=== PATIENT | male | born 1950 | race Two or more races ===

== ENCOUNTER 2017-07-26 20:18 | Inpatient (IN) | payer MEDICARE, MEDICAID ==
[~2017-07-26] VITALS: Ht 170.2 cm; Wt 89.8 kg
[2017-07-26 20:35] VITALS: BP 134/83
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
[2017-07-26] MEDS ORDERED: MAG HYDROX/AL HYDROX/SIMETH 30 ML UDC PO PRN (21:30)
[2017-07-26] MEDS ORDERED: TEMAZEPAM 7.5 MG CAPSULE PO PRN (21:30)
[2017-07-26] MEDS ORDERED: MAGNESIUM HYDROXIDE 30 ML UDC PO PRN (21:30)
[2017-07-26] MEDS ORDERED: LORAZEPAM 1 MG TABLET PO PRN (21:30)
[2017-07-26] MEDS ORDERED: TEMAZEPAM 7.5 MG CAPSULE ONE (22:34)
--- NOTE | 2017-07-26 22:37 | NUR ---
GPS RN: PATIENT REQUESTED FOR SLEEPING MEDICATION. KRISH RODRIGUEZ-RN TOOK MEDICATION FROM [facility]. GIVEN PATIENT TO PATIENT ORDERED. WILL MONITOR PATIENT'S SLEEPING PATTERN.
[2017-07-26] MEDS ORDERED: SERT25TA PO (23:30)
[2017-07-26] MEDS ORDERED: IBUP-1482 PO (23:32)
[2017-07-26] MEDS ORDERED: DOCU-170 PO (23:33)
[2017-07-26] MEDS ORDERED: ALPR1TAB7 PO (23:41)
[2017-07-26] MEDS ORDERED: ESCI20TA PO (23:42)
[2017-07-26] MEDS ORDERED: AMLO10TA2 PO (23:42)
[2017-07-26] MEDS ORDERED: LABE200T PO (23:43)
[2017-07-26] MEDS ORDERED: GABA-534 PO (23:44)
[2017-07-26] MEDS ORDERED: BUSP5TAB3 PO (23:47)
[2017-07-26] MEDS ORDERED: LISI-603 PO (23:48)
[2017-07-26] MEDS ORDERED: CANA1TAB PO (23:49)
[2017-07-26] MEDS ORDERED: CHLO25CA22 PO (23:52)
[2017-07-26] MEDS ORDERED: CLIN-63 PO (23:53)
[2017-07-26] MEDS ORDERED: METO25TA6 PO (23:54)
[2017-07-27] MEDS ORDERED: LORAZEPAM 1 MG TABLET ONE (00:22)
--- NOTE | 2017-07-27 00:23 | NUR ---
GPS RN: PATIENT COMPLAINED OF BEING ANXIOUS THIS TIME. REQUESTED FOR ATIVAN MEDICATION. NATURAL RESOURCES TECHNICIANJANET TOOK ATIVAN 1MG AN OVERRIDE FROM [facility], LIQUOR DEPARTMENT MANAGER ADMINISTERED THE SAID MEDICATION TO PATIENT. WILL MONITOR EFFECTIVENESS OF THE MEDICATION. WILL ENDORSE TO DAY SHIFT NURSE.
[2017-07-27] MEDS ORDERED: *INSULIN REGULAR(HUMULIN R)HUM 100 UNIT/ML VIAL SQ PRN (01:30)
[2017-07-27] MEDS ORDERED: DEXTROSE 50%-WATER 50 ML DISP.SYRIN IV PRN (01:30)
[2017-07-27] MEDS ORDERED: INSULIN REGULAR, HUMAN 100 UNIT/ML 3 ML VIAL SQ PRN (01:30)
[2017-07-27] MEDS: ACETAMINOPHEN 325 MG TABLET PO PRN (04:17)
[2017-07-27] MEDS ORDERED: ACETAMINOPHEN 325 MG TABLET ONE (04:17)
--- NOTE | 2017-07-27 04:20 | NUR ---
GPS RN: PATIENT COMPLAINED OF MILD HEADCAHE, HE THEN REQUESTED FOR TYLENOL MEDICATION.CODING SPECIALISTJANET TOOK TYLENOL 650MG FROM [employer] [facility]. CONVEYOR LINE BAKERY WORKER ADMINISTERED IT TO PATIENT ORDERED. WILL MONITOR EFFECTIVENESS OF MEDICATION. WILL MONITOR PATIENT'S PAIN STATUS.
[2017-07-27 06:35] LABS: HEMATOCRIT 36 % (39-51); HEMOGLOBIN 11.8 g/dL (13.5-17.5); MEAN CORPUSCULAR HEMOGLOBIN 25 PG (26.0-33.0); MEAN CORPUSCULAR HGB CONC 33 g/dl (31.0-36.0); MEAN CORPUSCULAR VOLUME 75 fL (80-96); PLATELET COUNT (AUTO) 194 /CMM (150-450); RDW COEFFICIENT OF VARIATION 21.9 (11.5-15.0); WHITE BLOOD COUNT (AUTO) 8.5 K/uL (4.3-11.0)
--- NOTE | 2017-07-27 06:49 | NUR ---
GPS RN: CALLED CLAU DELVALLE [phone] WITH NO ANSWER. LEFT VOICEMAIL.
[2017-07-27] MEDS: BLOOD SUGAR DIAGNOSTIC 1 EACH STRIP VI SCH ×4 (07:30→21:06)
[2017-07-27 07:44] LABS: ALBUMIN 3.5 g/dL (3.4-5.0); BILIRUBIN,TOTAL 1.4 mg/dL (0.2-1.0); CALCIUM, SERUM 8.9 mg/dL (8.5-10.1); CREATININE 0.7 mg/dL (0.6-1.3); TOTAL PROTEIN, SERUM 7.3 g/dL (6.4-8.2)
[2017-07-27 08:17] VITALS: BP 141/78
[2017-07-27 08:28] LABS: BAND % (MANUAL) 2 % (0.0-5.0); EOSINOPHILS % (MANUAL) 5 % (0-4); LYMPHOCYTES % (MANUAL) 9 % (16-48); MONOCYTES % (MANUAL) 7 % (0-11.0); NEUTROPHILS % (MANUAL) 77 (42-76)
[2017-07-27] MEDS ORDERED: IBUPROFEN 400 MG TABLET PO PRN (08:30)
[2017-07-27] MEDS: GABAPENTIN 300 MG CAPSULE PO SCH ×2 (09:05→17:03)
[2017-07-27] MEDS: AMLODIPINE BESYLATE 10 MG TABLET PO SCH (09:05)
[2017-07-27] MEDS: METFORMIN 500 MG TABLET PO SCH ×2 (09:05→17:03)
[2017-07-27] MEDS: METOPROLOL TARTRATE 25 MG TABLET PO SCH ×2 (09:05→17:04)
[2017-07-27] MEDS: DOCUSATE SODIUM 100 MG CAPSULE PO SCH ×2 (09:05→17:03)
[2017-07-27] MEDS: LISINOPRIL (20MG) 20 MG TABLET PO SCH ×2 (09:58→17:04)
[2017-07-27] MEDS ORDERED: POTASSIUM CHLORIDE 20 MEQ TAB.PRT.SR PO ONE (12:00)
[2017-07-27 15:58] VITALS: BP 130/65
[2017-07-27] MEDS: ALPRAZOLAM 0.25 MG TABLET PO PRN ×3 (17:03→17:08)
[2017-07-27 20:23] VITALS: BP 117/90
[2017-07-27] MEDS: ALPRAZOLAM 1 MG TABLET PO SCH (21:05)
[2017-07-27] MEDS: TEMAZEPAM 7.5 MG CAPSULE PO PRN (22:20)
[2017-07-28] MEDS: BLOOD SUGAR DIAGNOSTIC 1 EACH STRIP VI SCH ×4 (07:30→21:45)
[2017-07-28 07:55] LABS: HEMATOCRIT 36 % (39-51); HEMOGLOBIN 11.6 g/dL (13.5-17.5); MEAN CORPUSCULAR HEMOGLOBIN 24 PG (26.0-33.0); MEAN CORPUSCULAR HGB CONC 32 g/dl (31.0-36.0); MEAN CORPUSCULAR VOLUME 76 fL (80-96); PLATELET COUNT (AUTO) 200 /CMM (150-450); RDW COEFFICIENT OF VARIATION 22.4 (11.5-15.0); RED BLOOD CELL COUNT(AUTO) 4.76 MIL/uL (4.5-6.0); WHITE BLOOD COUNT (AUTO) 6.5 K/uL (4.3-11.0)
[2017-07-28 07:57] LABS: CALCIUM, SERUM 9.2 mg/dL (8.5-10.1); CREATININE 0.9 mg/dL (0.6-1.3); MAGNESIUM 1.4 mg/dL (1.8-2.4); POTASSIUM 3.8 mmol/L (3.5-5.1)
[2017-07-28 08:14] VITALS: BP 131/57
[2017-07-28] MEDS ORDERED: SERTRALINE HCL 50 MG TABLET PO SCH (09:00)
[2017-07-28] MEDS: DOCUSATE SODIUM 100 MG CAPSULE PO SCH (09:03)
[2017-07-28] MEDS: GABAPENTIN 300 MG CAPSULE PO SCH ×2 (09:04→16:21)
[2017-07-28] MEDS: AMLODIPINE BESYLATE 10 MG TABLET PO SCH (09:05)
[2017-07-28] MEDS: METFORMIN 500 MG TABLET PO SCH ×2 (09:42→16:30)
[2017-07-28] MEDS: LISINOPRIL (20MG) 20 MG TABLET PO SCH ×2 (09:43→17:35)
[2017-07-28] MEDS: METOPROLOL TARTRATE 25 MG TABLET PO SCH ×2 (09:43→17:34)
--- NOTE | 2017-07-28 09:46 | NUR ---
Initial Discharge Note: Per patient, he lives at home with her daughter and [place]- [place] [address]. ([phone]). body and fender worker attempted to contact patient's ex- Luda Cobb ([phone]) however, she was unavailable. body and fender worker left a voicemail with direct contact information. body and fender worker will help form a safe and proper discharge.
[2017-07-28 10:02] LABS: BAND % (MANUAL) 4 % (0.0-5.0); EOSINOPHILS % (MANUAL) 4 % (0-4); LYMPHOCYTES % (MANUAL) 9 % (16-48); MONOCYTES % (MANUAL) 8 % (0-11.0); NEUTROPHILS % (MANUAL) 75 (42-76)
[2017-07-28] MEDS ORDERED: MAGNESIUM OXIDE 400 MG TABLET PO ONE (11:30)
--- NOTE | 2017-07-28 12:42 | NUR ---
reworker faxed initial review packet to [facility] [place] 2[place] and [facility] (phone: [phone]/fax: [phone]) [address] [place] [address]. reworker will follow-up.
[2017-07-28] MEDS ORDERED: LACTULOSE 10 G/15 ML UDC (PYXIS) PO PRN (13:00)
--- NOTE | 2017-07-28 15:11 | NUR ---
RN-CO: TONI ESTEVEZ THAT PATIENT WANTS TO CHANGE THE TIME OF HIS ROUTINE MEDICATIONS. TONI OK'D IT.
[2017-07-28] MEDS ORDERED: AMLODIPINE BESYLATE 5 MG TABLET PO ONE (15:33)
[2017-07-28 16:00] VITALS: BP_SYST 122; BP_SYST 153; BP_DIAS 73; BP_DIAS 74
[2017-07-28 20:01] VITALS: BP 122/65
[2017-07-28] MEDS: TEMAZEPAM 7.5 MG CAPSULE PO PRN (21:11)
[2017-07-28] MEDS: ALPRAZOLAM 1 MG TABLET PO SCH (21:13)
--- NOTE | 2017-07-28 21:45 | NUR ---
RN NOTES PT BS= 104 NO NEED TO GIVE INSULIN PER SLIDING SCALE. PT REMAINED CALM AND COMPLIANT WITH MEDICINE. NO S/S OF HYPO OR HYPERGLYCEMIA. WILL CONTINUE TO MONITOR.
[2017-07-29] MEDS: SERTRALINE HCL 50 MG TABLET PO SCH (07:16)
[2017-07-29] MEDS: GABAPENTIN 300 MG CAPSULE PO SCH ×2 (07:16→15:46)
[2017-07-29] MEDS: METFORMIN 500 MG TABLET PO SCH ×2 (07:16→15:45)
[2017-07-29] MEDS: DOCUSATE SODIUM 100 MG CAPSULE PO SCH (07:16)
[2017-07-29] MEDS: AMLODIPINE BESYLATE 10 MG TABLET PO SCH (07:18)
[2017-07-29] MEDS: METOPROLOL TARTRATE 25 MG TABLET PO SCH ×2 (07:18→15:46)
[2017-07-29] MEDS: LISINOPRIL (20MG) 20 MG TABLET PO SCH ×2 (07:18→15:46)
--- NOTE | 2017-07-29 08:00 | NUR ---
GPS/RN BS 109, NO COVERAGE NEEDED
[2017-07-29 08:53] VITALS: BP 141/83
[2017-07-29 09:11] LABS: CALCIUM, SERUM 9.8 mg/dL (8.5-10.1); MAGNESIUM 1.3 mg/dL (1.8-2.4); POTASSIUM 3.6 mmol/L (3.5-5.1)
[2017-07-29] MEDS: BLOOD SUGAR DIAGNOSTIC 1 EACH STRIP VI SCH ×4 (09:16→22:47)
--- NOTE | 2017-07-29 09:46 | NUR ---
piece dye worker received a voicemail from Ellen from [facility] (phone: [phone]/fax: [phone]) [address] [facility] [place] [address], who stated that they cannot accept the patient as they feel they are unable to meet his needs.
--- NOTE | 2017-07-29 09:48 | NUR ---
drug worker faxed initial review packet to [facility] (phone: [phone]/ fax: [phone]) [address] [place] [address]. drug worker will follow-up.
--- NOTE | 2017-07-29 10:41 | NUR ---
flat screen worker spoke to Angelica from [facility] (phone: [phone]/ fax: [phone]) [address] [place] [address] who stated that they cannot accept the patient due to his alcohol abuse and behavior.
--- NOTE | 2017-07-29 10:53 | NUR ---
cone worker faxed initial review packet to [address] [place] [address] ( / ) cone worker will follow-up.
--- NOTE | 2017-07-29 12:00 | NUR ---
GPS/RN BS 114, NO COVERAGE NEEDED
[2017-07-29] MEDS ORDERED: MAGNESIUM OXIDE 400 MG TABLET PO ONE (12:30)
[2017-07-29 16:26] VITALS: BP 141/95
--- NOTE | 2017-07-29 17:30 | NUR ---
GPS/RN BS 114, NO COVERAGE NEEDED
[2017-07-29] MEDS: ALPRAZOLAM 1 MG TABLET PO SCH (21:46)
[2017-07-29] MEDS: TEMAZEPAM 7.5 MG CAPSULE PO PRN (21:46)
[2017-07-30 08:00] VITALS: BP 133/74
[2017-07-30] MEDS: BLOOD SUGAR DIAGNOSTIC 1 EACH STRIP VI SCH ×4 (08:45→21:43)
[2017-07-30] MEDS: AMLODIPINE BESYLATE 10 MG TABLET PO SCH (08:50)
[2017-07-30] MEDS: DOCUSATE SODIUM 100 MG CAPSULE PO SCH (08:50)
[2017-07-30] MEDS: GABAPENTIN 300 MG CAPSULE PO SCH ×2 (08:50→15:46)
[2017-07-30] MEDS: SERTRALINE HCL 50 MG TABLET PO SCH (08:50)
[2017-07-30] MEDS: METFORMIN 500 MG TABLET PO SCH ×2 (08:50→15:46)
[2017-07-30] MEDS: METOPROLOL TARTRATE 25 MG TABLET PO SCH ×2 (08:51→15:47)
[2017-07-30] MEDS: LISINOPRIL (20MG) 20 MG TABLET PO SCH ×2 (08:51→15:47)
--- NOTE | 2017-07-30 09:43 | NUR ---
color drum worker spoke to Cj from [address] [place] [address] ( / ) who stated that they cannot accept the patient at this time.
--- NOTE | 2017-07-30 14:06 | NUR ---
GPS/RN ACCUCHECK WITH GF=[id number]. PT REFUSED INSULIN COVERAGE.
[2017-07-30 16:00] VITALS: BP 136/85
--- NOTE | 2017-07-30 17:30 | NUR ---
GPS/RN PT REFUSED ACCUCHECK OFFERED X3
[2017-07-30 20:00] VITALS: BP 135/73
[2017-07-30] MEDS: ALPRAZOLAM 0.25 MG TABLET PO PRN (21:41)
[2017-07-30] MEDS: TEMAZEPAM 7.5 MG CAPSULE PO PRN (21:41)
[2017-07-30] MEDS: ALPRAZOLAM 1 MG TABLET PO SCH (22:13)
[2017-07-31] MEDS: DOCUSATE SODIUM 100 MG CAPSULE PO SCH (07:31)
[2017-07-31] MEDS: METFORMIN 500 MG TABLET PO SCH ×2 (07:32→15:40)
[2017-07-31] MEDS: GABAPENTIN 300 MG CAPSULE PO SCH ×2 (07:32→15:39)
[2017-07-31] MEDS: METOPROLOL TARTRATE 25 MG TABLET PO SCH ×2 (07:32→15:40)
[2017-07-31] MEDS: SERTRALINE HCL 50 MG TABLET PO SCH (07:32)
[2017-07-31] MEDS: AMLODIPINE BESYLATE 10 MG TABLET PO SCH (07:32)
[2017-07-31] MEDS: BLOOD SUGAR DIAGNOSTIC 1 EACH STRIP VI SCH ×4 (07:33→22:09)
[2017-07-31] MEDS: LISINOPRIL (20MG) 20 MG TABLET PO SCH ×2 (07:33→15:40)
[2017-07-31 08:00] VITALS: BP 135/103
[2017-07-31 16:00] VITALS: BP 117/74
--- NOTE | 2017-07-31 18:30 | NUR ---
GPS RN: PATIENT'S BG LEVEL IS 136MG/DL. PATIENT REFUSED INSULIN SS COVERAGE.
[2017-07-31 20:00] VITALS: BP 126/75
[2017-07-31] MEDS: TEMAZEPAM 7.5 MG CAPSULE PO PRN (21:39)
[2017-07-31] MEDS: ALPRAZOLAM 0.25 MG TABLET PO PRN (21:39)
[2017-07-31] MEDS: ALPRAZOLAM 1 MG TABLET PO SCH (22:09)
[2017-08-01 08:00] VITALS: BP 144/98
[2017-08-01] MEDS: GABAPENTIN 300 MG CAPSULE PO SCH ×2 (08:38→16:34)
[2017-08-01] MEDS: SERTRALINE HCL 50 MG TABLET PO SCH (08:39)
[2017-08-01] MEDS: LISINOPRIL (20MG) 20 MG TABLET PO SCH ×2 (08:39→16:34)
[2017-08-01] MEDS: METOPROLOL TARTRATE 25 MG TABLET PO SCH ×2 (08:39→16:33)
[2017-08-01] MEDS: AMLODIPINE BESYLATE 10 MG TABLET PO SCH (08:39)
[2017-08-01] MEDS: DOCUSATE SODIUM 100 MG CAPSULE PO SCH (08:40)
[2017-08-01] MEDS: BLOOD SUGAR DIAGNOSTIC 1 EACH STRIP VI SCH ×4 (08:40→21:34)
[2017-08-01] MEDS: METFORMIN 500 MG TABLET PO SCH ×2 (08:41→16:33)
--- NOTE | 2017-08-01 10:00 | NUR ---
GPS/RN PT REQUESTED TO CHANGE THE TIME FOR AM MEDS FROM 0730 TO [phone]. MD IS IN AGREEMENT. PHARMACY CALLED FOR TIME ADJUSTMENT.
--- NOTE | 2017-08-01 12:45 | NUR ---
gps/rn pt refused accucheck at 1200. offered x3
[2017-08-01 16:00] VITALS: BP 127/62
[2017-08-01] MEDS: TEMAZEPAM 7.5 MG CAPSULE PO PRN (22:38)
[2017-08-01 22:53] VITALS: BP 123/67
[2017-08-01] MEDS: ALPRAZOLAM 1 MG TABLET PO SCH (23:39)
[2017-08-02 05:37] VITALS: BP 143/95
[2017-08-02] MEDS: ALPRAZOLAM 0.25 MG TABLET PO PRN ×2 (05:37→13:56)
--- NOTE | 2017-08-02 05:37 | NUR ---
GPS RN: PATIENT COMPLAINED OF BEING ANXIOUS, REQUESTED FOR XANAX MEDICATION. BP CHECKED PRIOR TO ADMINISTRATION BP 143/95 HR-117. XANAX 0.5 MG GIVEN A PRN ORDER. WILL CONTINUE TO MONITOR PATIENT.
[2017-08-02] MEDS: SERTRALINE HCL 50 MG TABLET PO SCH (06:36)
[2017-08-02] MEDS: METFORMIN 500 MG TABLET PO SCH ×2 (06:37→15:33)
[2017-08-02] MEDS: LISINOPRIL (20MG) 20 MG TABLET PO SCH ×2 (06:37→15:33)
[2017-08-02] MEDS: METOPROLOL TARTRATE 25 MG TABLET PO SCH ×2 (06:38→15:33)
[2017-08-02] MEDS: GABAPENTIN 300 MG CAPSULE PO SCH ×2 (06:38→15:33)
[2017-08-02] MEDS: DOCUSATE SODIUM 100 MG CAPSULE PO SCH (07:35)
[2017-08-02] MEDS: AMLODIPINE BESYLATE 10 MG TABLET PO SCH (07:35)
[2017-08-02] MEDS: BLOOD SUGAR DIAGNOSTIC 1 EACH STRIP VI SCH ×4 (07:35→21:24)
[2017-08-02 08:00] VITALS: BP 117/83
--- NOTE | 2017-08-02 14:01 | NUR ---
GPS RN: PATIENT REQUESTED FOR XANAX FOR ANXIETY XANAX 0.5 MG GIVEN A PRN ORDER. WILL CONTINUE TO MONITOR PATIENT.
--- NOTE | 2017-08-02 15:25 | NUR ---
Per Kelli, from [facility] [phone]) [address] [facility] [place] [address], patient could not be accepted to their facility due to his insurance coverage.
--- NOTE | 2017-08-02 15:44 | NUR ---
crime prevention worker spoke to patient's ex- Luda Cobb ([phone]) who stated that patient was at two nursing homes prior to him staying with her and her daughter. Per Luda, patient has a drinking problem and she had warned him that he would not be allowed to stay at home if he drank. Per Dariel, her and her daughter filed a restraining order. Luda suggested social insurance administrator speak to patient's step-daughter Estrellita ([phone]). crime prevention worker will follow-up.
[2017-08-02 16:18] VITALS: BP 150/76
--- NOTE | 2017-08-02 16:26 | NUR ---
munitions worker spoke to patient's daughter Estrellita ([phone]) who confirmed that patient was at [facility] in [place] and than was discharged to [facility] ([phone]/ [phone]) [address] [place] [address]. Per Estrellita, [facility] may have a bed available and encouraged hospice social worker to speak to Althea the senior sales administrator. munitions worker will follow-up.
[2017-08-02 20:00] VITALS: BP 131/80
[2017-08-02] MEDS: ALPRAZOLAM 1 MG TABLET PO SCH (21:24)
[2017-08-02] MEDS: TEMAZEPAM 7.5 MG CAPSULE PO PRN (22:29)
[2017-08-03] MEDS: GABAPENTIN 300 MG CAPSULE PO SCH ×2 (06:36→15:25)
[2017-08-03] MEDS: METFORMIN 500 MG TABLET PO SCH ×2 (06:36→15:25)
[2017-08-03] MEDS: LISINOPRIL (20MG) 20 MG TABLET PO SCH ×2 (06:36→15:25)
[2017-08-03] MEDS: METOPROLOL TARTRATE 25 MG TABLET PO SCH ×2 (06:37→15:25)
[2017-08-03] MEDS: SERTRALINE HCL 50 MG TABLET PO SCH (06:38)
[2017-08-03] MEDS: BLOOD SUGAR DIAGNOSTIC 1 EACH STRIP VI SCH ×4 (07:33→21:04)
[2017-08-03 08:00] VITALS: BP 117/76
[2017-08-03] MEDS: DOCUSATE SODIUM 100 MG CAPSULE PO SCH (08:48)
[2017-08-03] MEDS: AMLODIPINE BESYLATE 10 MG TABLET PO SCH (08:48)
--- NOTE | 2017-08-03 14:55 | NUR ---
Per Cj from [facility], they reevaluated and are willing to accept the patient to their facility, [address] [place] [address] ( / ). transportation worker will follow-up.
[2017-08-03] MEDS: ALPRAZOLAM 0.25 MG TABLET PO PRN (15:15)
[2017-08-03 15:35] VITALS: BP 128/84
[2017-08-03 19:55] VITALS: BP 136/76
[2017-08-03] MEDS: ALPRAZOLAM 1 MG TABLET PO SCH (21:03)
[2017-08-03] MEDS: TEMAZEPAM 7.5 MG CAPSULE PO PRN (22:30)
[2017-08-04] MEDS: ACETAMINOPHEN 325 MG TABLET PO PRN (05:53)
[2017-08-04] MEDS: ALPRAZOLAM 0.25 MG TABLET PO PRN (06:29)
--- NOTE | 2017-08-04 06:29 | NUR ---
GPS RN: PATIENT EXPRESSED HIS FEELINGS OF ANXIETY, BP CHECKED; 136/79 HR-91. HE REQUESTED HIS XANAX 0.5 MG PO FIRST OVER HIS 630AM MEDS. GIVEN XANAX MEDICATION PRN ORDERED. WILL MONITOR PATIENT.
[2017-08-04] MEDS: LISINOPRIL (20MG) 20 MG TABLET PO SCH (07:23)
[2017-08-04] MEDS: SERTRALINE HCL 50 MG TABLET PO SCH (07:23)
[2017-08-04] MEDS: METFORMIN 500 MG TABLET PO SCH (07:23)
[2017-08-04] MEDS: GABAPENTIN 300 MG CAPSULE PO SCH (07:24)
[2017-08-04] MEDS: METOPROLOL TARTRATE 25 MG TABLET PO SCH (07:24)
[2017-08-04] MEDS: BLOOD SUGAR DIAGNOSTIC 1 EACH STRIP VI SCH ×2 (07:30→11:41)
[2017-08-04] MEDS: AMLODIPINE BESYLATE 10 MG TABLET PO SCH (07:30)
[2017-08-04] MEDS: DOCUSATE SODIUM 100 MG CAPSULE PO SCH (07:30)
[2017-08-04 08:00] VITALS: BP 134/95
--- NOTE | 2017-08-04 09:00 | NUR ---
RN-CO: DR HERNANDEZ GAVE AN ORDER TO DISCHARGE PATIENT TO SNF AND DISCONTINUE HOLD AT 12:30 PM. NOTED PATIENT DENIED SUICIDAL AND HOMICIDAL IDEATION, CALM AND COOPERATIVE TO SANJAY, EX CLAU .
--- NOTE | 2017-08-04 10:58 | NUR ---
Discharge Note: Patient will be discharged to [facility] ([phone]) [address] [place] [address]. Via med response. Patients ex- Luda Cobb ([phone]) and patient's daughter Estrellita ([phone]) have been notified. Patient is agreeable with the discharge plan. Patient's mood is calm and patient is smiling and stated that he was glad he is being discharged to the facility. Patient denies suicidal and homicidal ideations. Patient will follow-up with psychiatrist Dr. Rivera ([phone]) on 08/11/17 at 2:00PM, in which he will discuss his alcohol abuse. Facilitated info to IDT team who are in agreement with discharge arrangement. The multidisciplinary exitcare form was done, printed, signed, and given to the patient.
[2017-08-04 13:54] LABS: CALCIUM, SERUM 8.8 mg/dL (8.5-10.1); MAGNESIUM 1.6 mg/dL (1.8-2.4); PHOSPHORUS 3.6 mg/dL (2.5-4.9); POTASSIUM 3.9 mmol/L (3.5-5.1)
--- NOTE | 2017-08-04 14:02 | NUR ---
PT DISCHARGED TO [facility]. REPORT GIVEN TO MERLIN AT [facility]. PT SIGNED BELONGINGS LIST AND DC PAPERWORK REFUSED SKIN PICTURES ON DC STATES HE DOES NOT WANT TO DISROBE, HE IS ALREADY DRESSED IN HIS OWN CLOTHES. PT'S MEDICATIONS IN A SEALED BACK GIVEN TO MEDICAL TRANSPORT. ALL BELONGINGS RETURNED TO THE PATIENT. EX- NOTIFIED BY CASE MGMT. PT LEFT THE UNIT AT 1350
== END 2017-08-04 14:00 | DRG 885 ==
LOC: GPS 20:34
PROVIDERS: ADMIT Psychiatry & Neurology Psychiatry; ATTEND Internal Medicine
DX: F33.2 Major depressive disorder, recurrent severe without psychotic features (principal); E83.42 Hypomagnesemia; E11.9 Type 2 diabetes mellitus without complications; F23 Brief psychotic disorder; D50.9 Iron deficiency anemia, unspecified; E87.6 Hypokalemia; F10.20 Alcohol dependence, uncomplicated; F41.9 Anxiety disorder, unspecified; I10 Essential (primary) hypertension; M19.90 Unspecified osteoarthritis, unspecified site; Z73.6 Limitation of activities due to disability; Z85.46 Personal history of malignant neoplasm of prostate
CPT/HCPCS: 36415; 80048-TC; 80053-TC; 80061-TC; 82962-TC; 83540-TC; 83735-TC; 84100-TC; 85025-TC; 87081-TC; J1815

== ENCOUNTER 2019-11-10 21:56 | Inpatient (IN) | payer MEDICARE, OTHER ==
[~2019-11-10] VITALS: Ht 177.8 cm; Wt 92.5 kg
[~2019-11-10 21:56] MED LIST: AMLO10TA7 PO; CANA1TAB PO; CLIN150C16 PO; DOCU100C36 PO; GABA-534 PO; IBUP-1957 PO; LABE200T5 PO; LISI-603 PO; METO25TA6 PO
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
[2019-11-10 23:09] LABS: BASOPHILS % (AUTO) 0.6 % (0.0-2.0); EOSINOPHILS % (AUTO) 2.1 % (0.0-6.0); HEMATOCRIT 33 % (39-51); HEMOGLOBIN 10.7 g/dL (13.5-17.5); LYMPHOCYTES # (AUTO) 0.6 /CMM (0.8-4.8); MEAN CORPUSCULAR HGB CONC 33 g/dl (31.0-36.0); MEAN CORPUSCULAR VOLUME 84 fL (80-96); MONOCYTES # (AUTO) 0.9 /CMM (0.1-1.30); MONOCYTES % (AUTO) 14.1 % (2.0-12.0); NEUTROPHILS # (AUTO) 4.5 /CMM (1.8-8.9); NEUTROPHILS % (AUTO) 73.2 % (43.0-81.0); PLATELET COUNT (AUTO) 184 /CMM (150-450); WHITE BLOOD COUNT (AUTO) 6.2 K/uL (4.3-11.0)
[2019-11-10 23:20] LABS: CARBON DIOXIDE 23 mmol/L (21-32); CHLORIDE 109 mmol/L (98-107); CREATININE 1.6 mg/dL (0.6-1.3); GLUCOSE 126 mg/dL (74-106); POTASSIUM 4.1 mmol/L (3.5-5.1); SODIUM SERUM 141 mmol/L (136-145); UREA NITROGEN, BLOOD 28 mg/dL (7-18)
[2019-11-10 23:26] LABS: ALANINE AMINOTRANSFERASE 22 U/L (12-78); ALBUMIN 3.6 g/dL (3.4-5.0); ALCOHOL, BLOOD < 3 mg/dL (0-0); ALKALINE PHOSPHATASE 69 U/L (46-116); ASPARTATE AMINOTRANSFERASE 19 U/L (15-37); BILIRUBIN,DIRECT 0.1 mg/dL (0.0-0.2); BILIRUBIN,TOTAL 0.2 mg/dL (0.2-1.0); TOTAL PROTEIN, SERUM 6.7 g/dL (6.4-8.2)
[2019-11-10 23:27] LABS: ACETAMINOPHEN 0 ug/ml (10-30); SALICYLATE 0.7 mg/dL (2.8-20.0)
--- NOTE | 2019-11-10 23:29 | NUR ---
PT REMAINS STABLE WITH NO DISTRESS NOTED. VS ARE STABLE WILL CONTINUE TO MONITOR
[2019-11-10] MEDS ORDERED: CHLORDIAZEPOXIDE HCL 25 MG CAPSULE PO PRN (23:30)
[2019-11-10] MEDS ORDERED: TEMAZEPAM 15 MG CAPSULE PO PRN (23:30)
[2019-11-11 00:21] LABS: APPEARANCE,URINE Clear (CLEAR); BILIRUBIN,URINE Negative (NEGATIVE); BLOOD, URINE Negative Ery/uL (NEGATIVE); COLOR,URINE Yellow (YELLOW); KETONES,URINE Negative (NEGATIVE); LEUKOCYTE ESTERASE ,URINE Negative (NEGATIVE); NITRITE, URINE Negative (NEGATIVE); PH,URINE 5.5 (5.0-8.0); PROTEIN,URINE Negative (NEGATIVE); UGLUCOSE Negative (NEGATIVE); UROBILINOGEN,URINE 0.2 EU/dL (0.2)
[2019-11-11] MEDS ORDERED: LORAZEPAM 1 MG TABLET ONE ×2 (01:41→06:00)
[2019-11-11] MEDS ORDERED: LORAZEPAM 1 MG TABLET PO ONE ×2 (02:00→06:00)
[2019-11-11] MEDS ORDERED: THIAMINE HCL 100 MG TABLET ONE (09:20)
[2019-11-11] MEDS: THIAMINE HCL 100 MG TABLET PO SCH (09:23)
--- NOTE | 2019-11-11 09:42 | NUR ---
PANEL ON-CALL PAGED FOR TELE ADMIT
--- NOTE | 2019-11-11 10:38 | NUR ---
received a call from Erna AVILES and lamine to admit patient for GPS under Dr. Samson.
--- NOTE | 2019-11-11 10:39 | NUR ---
CALLED FOR GPS BED
--- NOTE | 2019-11-11 10:53 | NUR ---
REPORT GIVEN TO VINAYAK DURAN FOR FAB
[2019-11-11 11:30] VITALS: BP 126/65
[2019-11-11] MEDS ORDERED: BLOOD SUGAR DIAGNOSTIC 1 EACH STRIP IN ONE (11:30)
[2019-11-11] MEDS ORDERED: MAGNESIUM HYDROXIDE 30 ML UDC PO PRN (11:30)
[2019-11-11] MEDS ORDERED: TEMAZEPAM 7.5 MG CAPSULE PO PRN (11:30)
--- NOTE | 2019-11-11 11:30 | NUR ---
GPS/RN -NOTES ADMITTED 69 YEAR OLD MALE PATIENT FROM [facility]. PER HOLD PATIENT ON 5150 FOR DTS.PATIENT AWAKE,ALERT AMBULATORY WITH STEADY GAIT, CALM AND COOPERATIVE.PATIENT DENIES SI/HI AT THIS TIME.STATED" I'M HERE BECAUSE I'M DEPRESSED BUT I'M NOT SUICIDAL". PATIENT SIGN ALL ADMISSION PAPERS. PATIENT'S RIGHT WAS REVIEWED WAS GIVEN TO HIM .CONTRA BAND AND FULL BODY ASSESSMENT WAS DONE. HE WAS ORIENTED IN THE UNIT AND UNIT POLICIES. ETELVINA AND DTR NGUYEN WAS MADE AWARE OF THE ADMISSION. DR. MAYES ADMITTING PSYCHIATRIST AND ANNETTE PAIGE STRE[address] AND BUILDING DECORATOR WAS MADE AWARE OF PATIENT ADMISSION WITH ORDERS.
[2019-11-11] MEDS ORDERED: TRAZ300T2 PO (11:55)
[2019-11-11] MEDS ORDERED: SPIR25TA6 PO (11:55)
[2019-11-11] MEDS ORDERED: LOSA50TA39 PO (11:55)
[2019-11-11] MEDS ORDERED: ATOR40TA PO (11:55)
[2019-11-11] MEDS ORDERED: AMIO200T4 PO (11:55)
[2019-11-11] MEDS ORDERED: HYDR-4384 PO (11:55)
[2019-11-11] MEDS ORDERED: APIX5TAB PO (11:55)
[2019-11-11] MEDS ORDERED: ACID1TAB14 PO (11:55)
[2019-11-11] MEDS ORDERED: FAMO20TA8 PO (11:55)
[2019-11-11] MEDS ORDERED: POLY17PO4 PO (11:55)
[2019-11-11] MEDS ORDERED: LEVO25TA7 PO (11:55)
--- NOTE | 2019-11-11 13:45 | NUR ---
Dr. Samson made aware of the admission and with orders
--- NOTE | 2019-11-11 15:28 | NUR ---
GPS/RN-NOTES PATIENT C/O CONSTIPATION FOR 2 DAYS AND REQUESTING FOR PRUNE JUICE MEDICATIONS. PRUNE JUICE GIVEN MOM 30 ML GIVEN PRN ORDER. WILL CONT. MONITORING
[2019-11-11 16:00] VITALS: BP 133/69
[2019-11-11 20:00] VITALS: BP 122/69
[2019-11-11] MEDS ORDERED: TRAZODONE 50 MG TABLET PO PRN (20:00)
[2019-11-11] MEDS: APIXABAN 5 MG TABLET PO SCH (20:33)
[2019-11-11] MEDS: TEMAZEPAM 7.5 MG CAPSULE PO PRN (23:05)
[2019-11-12] MEDS: LEVOTHYROXINE SODIUM 50 MCG TABLET PO SCH (07:44)
[2019-11-12 08:00] VITALS: BP 134/75
[2019-11-12 08:23] LABS: CHOLESTEROL 108 mg/dL (<200); HDL CHOLESTEROL 43 mg/dL (40-60); LDL 56 mg/dL (0-99); TRIGLYCERIDES 44 mg/dL (30-150)
[2019-11-12] MEDS: FAMOTIDINE (20 MG) 20 MG TABLET PO SCH ×2 (08:24→17:42)
[2019-11-12] MEDS: ACIDOPHILUS/BULGARICUS 1 EACH TAB.CHEW PO SCH (08:24)
[2019-11-12] MEDS: ATORVASTATIN 40 MG TABLET PO SCH (08:24)
[2019-11-12] MEDS: APIXABAN 5 MG TABLET PO SCH ×2 (08:26→17:46)
[2019-11-12] MEDS: LOSARTAN POTASSIUM 50 MG TABLET PO SCH ×2 (08:27→17:44)
[2019-11-12] MEDS: POLYETHYLENE GLYCOL 3350 17 GM POWD.PACK PO SCH (08:28)
[2019-11-12] MEDS: THIAMINE HCL 100 MG TABLET PO SCH (08:28)
[2019-11-12] MEDS: AMIODARONE HCL 200 MG TABLET PO SCH (08:28)
[2019-11-12] MEDS: SPIRONOLACTONE 25 MG TABLET PO SCH (08:30)
[2019-11-12 08:37] LABS: ALBUMIN 3.4 g/dL (3.4-5.0); BILIRUBIN,TOTAL 0.5 mg/dL (0.2-1.0); CALCIUM, SERUM 8.5 mg/dL (8.5-10.1); CREATININE 1.2 mg/dL (0.6-1.3); POTASSIUM 3.7 mmol/L (3.5-5.1); TOTAL PROTEIN, SERUM 6.5 g/dL (6.4-8.2)
[2019-11-12] MEDS: ACETAMINOPHEN 325 MG TABLET PO PRN (15:03)
--- NOTE | 2019-11-12 15:03 | NUR ---
RN NOTE- PT W GENERALIZED PAIN. TYLENOL 650 MG GIVEN
[2019-11-12 16:00] VITALS: BP 119/66
[2019-11-12 20:28] VITALS: BP_SYST 125; BP_SYST 145; BP_DIAS 69; BP_DIAS 70
[2019-11-12] MEDS: TEMAZEPAM 7.5 MG CAPSULE PO PRN (23:33)
[2019-11-13] MEDS: clonazePAM 0.5 MG TABLET PO PRN ×3 (05:53→22:16)
[2019-11-13] MEDS: ACETAMINOPHEN 325 MG TABLET PO PRN ×2 (05:57→21:35)
--- NOTE | 2019-11-13 06:16 | NUR ---
AT 0550 PT COMPLAINED OF ANXIETY AND CHEST PAIN. V/S TAKEN BP127/59, P77, O2 96% R16. KLONOPIN 0.5MG I TAB AND TYLENOL 325MG 2TABS GIVEN PO. [facility] CALLED AND ORDER GIVEN BY MAX TODD FOR TACK WELDER CONSULT, AND MORPHINE SULPHATE 4MG Q 4HRS PRN FOR SEVERE PAIN. WILL CONTINUE TO MONITOR AND ENDORSE TO AM SHIFT.
--- NOTE | 2019-11-13 06:51 | NUR ---
AT 0650 PT REFUSED IV MORPHINE SULPHATE 4MG PRN, D/O DECREASED PAIN
[2019-11-13] MEDS ORDERED: MORPHINE SULFATE INJ 4 MG/ML DISP.SYRIN IV PRN (07:00)
[2019-11-13] MEDS: LEVOTHYROXINE SODIUM 50 MCG TABLET PO SCH (07:13)
--- NOTE | 2019-11-13 07:35 | NUR ---
refused skin check due to chest pain
[2019-11-13 08:00] VITALS: BP 131/81
[2019-11-13] MEDS: SPIRONOLACTONE 25 MG TABLET PO SCH (08:12)
[2019-11-13] MEDS: POLYETHYLENE GLYCOL 3350 17 GM POWD.PACK PO SCH ×2 (08:12→08:19)
[2019-11-13] MEDS: ACIDOPHILUS/BULGARICUS 1 EACH TAB.CHEW PO SCH (08:12)
[2019-11-13] MEDS: FAMOTIDINE (20 MG) 20 MG TABLET PO SCH ×2 (08:12→17:22)
[2019-11-13] MEDS: ATORVASTATIN 40 MG TABLET PO SCH (08:12)
[2019-11-13] MEDS: LOSARTAN POTASSIUM 50 MG TABLET PO SCH ×2 (08:12→17:22)
[2019-11-13] MEDS: AMIODARONE HCL 200 MG TABLET PO SCH (08:13)
[2019-11-13] MEDS: APIXABAN 5 MG TABLET PO SCH ×2 (08:14→17:23)
[2019-11-13] MEDS: THIAMINE HCL 100 MG TABLET PO SCH (08:16)
[2019-11-13] MEDS: SERTRALINE HCL 50 MG TABLET PO SCH (08:16)
--- NOTE | 2019-11-13 08:51 | NUR ---
RN NOTE- PT W CHEST PAIN PREVIOUSLY. MORPHINE ORDERED. PT REFUSED RX. I PHONED AUTOMOTIVE VEHICLE INSPECTOR PEREZ AND GOT NITRO 0.4 MG SL ORDERED FOR CHEST PAIN. PT CURRENTLY DENIES CHEST PAIN. MONITORING PT.
--- NOTE | 2019-11-13 08:56 | NUR ---
ROGER NOTE- SPOKE W DR YANG REGARDING CARDIAC CONSULT ORDERED. HES AWARE. Addendum: 11/13/19 at 0911 by MOHAN ROBERT RN DR YANG ON UNITRyan CARRILLO PT
--- NOTE | 2019-11-13 09:23 | NUR ---
Family Contact: SW called the pts ex , Luda ([phone]), and received a busy dial tone number.
--- NOTE | 2019-11-13 09:25 | NUR ---
Family Contact: SW called the pts daughter, Ana Maria ([phone]), and left a message on her voicemail stating that the SW would like to discuss the pts initial treatment and discharge plan.
--- NOTE | 2019-11-13 09:45 | NUR ---
RN NOTE- CT ORDERED, EKG . CONSENTS PREPARED AND PT READIED. IV 18G TO RT AC STARTED. AWAITING RADIOLOGY
[2019-11-13] MEDS: CARVEDILOL 6.25 MG TABLET PO SCH ×2 (10:46→21:27)
--- NOTE | 2019-11-13 10:54 | NUR ---
Initial Discharge Plan: Pt is currently homeless. Pt stated that he would like to be discharged to a snf facility. BARRY called the pts ex , Luda ([phone]), but was unable to make contact at this time. BARRY will work with the pt and the MD regarding appropriate discharge planning. SW will form a safe and proper discharge.
--- NOTE | 2019-11-13 10:56 | NUR ---
GPS/RN-NOTES DR. MAYES AND (COVERING FOR DR. MAYES) MADE AWARE OF THE CTA OF THE HEART BY DR. AUSTIN WITH T.O ORDER TO CONTINUE HOLD. ANNETTE PAIGE ALSO MADE AWARE OF CTA WITH NNO.
[2019-11-13] MEDS ORDERED: IV NS 0.9% 0 ML IV ONE (11:42)
[2019-11-13] MEDS ORDERED: IOHEXOL-350 100 ML VIAL IV ONE ×2 (11:42→15:34)
[2019-11-13] MEDS ORDERED: NITROGLYCERIN 0.4 MG/TAB BOTTLE ONE (11:56)
[2019-11-13] MEDS ORDERED: METOPROLOL TARTRATE INJ 5 MG/5 ML AMPUL ONE (11:56)
[2019-11-13] MEDS ORDERED: NITROGLYCERIN 0.4 MG/TAB BOTTLE SL ONE ×2 (12:00→16:00)
[2019-11-13] MEDS ORDERED: IV NS 0.9% 500 ML IV PRN (12:00)
[2019-11-13] MEDS ORDERED: METOPROLOL TARTRATE INJ 5 MG/5 ML AMPUL IVP PRN (12:00)
--- NOTE | 2019-11-13 12:27 | NUR ---
Unable to perform the CTA heart; pt came in with peripheral IV line g 18 on R ac but not flushing well, unable to place another P IV line; Nursing Passport Support Associate Lesley connelly; pt sent back to GPS with his sitter Jordon
[2019-11-13] MEDS ORDERED: IV NS 0.9% 250 ML IV ONE (15:34)
[2019-11-13] MEDS ORDERED: CT SWABBABLE VALVE TRANS SET 1 EA INFUS.SET MC ONE (15:34)
[2019-11-13 16:00] VITALS: BP 138/77
--- NOTE | 2019-11-13 16:43 | NUR ---
RN NOTE- PT AGITATED. YELLING T STAFF. IRRITABLE BECAUSE OF EXTENSION OF HOLD AND PROCEDURES TODAY. KLONOPIN 0.5 MG GIVEN
[2019-11-13 20:10] VITALS: BP 146/72
--- NOTE | 2019-11-13 21:37 | NUR ---
PRN TYLENOL GIVEN PATIENT VERBALIZED THAT HE HAS HEADACHE 3/10 & WANTED TO TAKE TYLENOL. PRN TYLENOL 650 MG PO GIVEN ORDERED. WILL CONTINUE TO MONITOR THE PATIENT FOR ANY CHANGES.
--- NOTE | 2019-11-13 22:20 | NUR ---
PRN KLONOPIN GIVEN PATIENT REQUESTED TO TAKE ANXIETY MEDICINE. STATED THAT HE IS FEELING ANXIOUS & RESTLESS. PRN KLONOPIN 0.5 MG GIVEN ORDERED. WILL CONTINUE TO MONITOR.
[2019-11-13] MEDS: TEMAZEPAM 7.5 MG CAPSULE PO PRN (23:31)
--- NOTE | 2019-11-13 23:33 | NUR ---
PRN RESTORIL GIVEN PATIENT STATED HE IS UNABLE TO SLEEP & WANTS TO TAKE SLEEPING MEDICINE AT THIS TIME, SO HE CAN GO TO SLEEP. RESTORIL 7.5 MG PRN PO GIVEN ORDERED. WILL MONITOR CLOSELY FOR ANY CHANGES & SAFETY.
[2019-11-14] MEDS: NITROGLYCERIN 0.4 MG/TAB BOTTLE SL PRN ×2 (04:59→17:26)
--- NOTE | 2019-11-14 04:59 | NUR ---
PRN NITROSTAT GIVEN patient had c/o chest pain, prn nitrostat 0.4 mg 1 tab SL given. vital signs checked, BP 157/86, 62, 18, 97.2 F, 96% on RA. will continue to assess the patient very closely for any changes.
--- NOTE | 2019-11-14 05:06 | NUR ---
GPS RN NOTE RECHECKED THE PATIENT, REFUSED VITALS TO BE CHECKED AT THIS TIME. STATED HE IS TRYING TO SLEEP & DOES NOT WANT TO BE BOTHERED AT THIS TIME. PATIENT STATED HE STILL HAS MILD CHEST PAIN BUT WANTS TO SLEEP NOW & DOES NOT WANT TO TAKE ANY MEDICINE AT THIS TIME. NO OTHER SYMPTOMS OF ACUTE DISTRESS NOTED AT THIS TIME. WILL KEEP ASSESSING THE PATIENT FOR ANY CHANGE OF CONDITION.
[2019-11-14 05:50] VITALS: BP 143/79
[2019-11-14] MEDS: LEVOTHYROXINE SODIUM 50 MCG TABLET PO SCH (07:47)
[2019-11-14] MEDS: clonazePAM 0.5 MG TABLET PO PRN ×2 (07:48→22:23)
--- NOTE | 2019-11-14 07:49 | NUR ---
RN NOTE- PT RESTING IN BED. DENIES CHEST PAIN. B/P 133/72, HR-67. PT W SOME ANXIETY HOWEVER. STATES HE GETS WORRIED ABOUT DC AND WHAT'S GOING TO HAPPEN TO HIM. KLONOPIN 0.5 MG GIVEN. CONTINUE TO MONITOR PT
[2019-11-14 08:00] VITALS: BP 133/72
[2019-11-14] MEDS: FAMOTIDINE (20 MG) 20 MG TABLET PO SCH ×2 (08:01→17:40)
[2019-11-14] MEDS: SPIRONOLACTONE 25 MG TABLET PO SCH (08:01)
[2019-11-14] MEDS: ATORVASTATIN 40 MG TABLET PO SCH (08:01)
[2019-11-14] MEDS: SERTRALINE HCL 50 MG TABLET PO SCH (08:01)
[2019-11-14] MEDS: ACIDOPHILUS/BULGARICUS 1 EACH TAB.CHEW PO SCH (08:02)
[2019-11-14] MEDS: AMIODARONE HCL 200 MG TABLET PO SCH (08:02)
[2019-11-14] MEDS: APIXABAN 5 MG TABLET PO SCH ×2 (08:05→17:41)
[2019-11-14] MEDS: LOSARTAN POTASSIUM 50 MG TABLET PO SCH ×2 (08:06→17:41)
[2019-11-14] MEDS: CARVEDILOL 6.25 MG TABLET PO SCH ×2 (08:06→21:50)
[2019-11-14] MEDS: POLYETHYLENE GLYCOL 3350 17 GM POWD.PACK PO SCH (08:06)
[2019-11-14] MEDS: THIAMINE HCL 100 MG TABLET PO SCH (08:10)
[2019-11-14] MEDS ORDERED: SOD FERRIC GLUC 125 MG in IV NS 0.9% 100 ML IV SCH (14:00)
--- NOTE | 2019-11-14 14:29 | NUR ---
RN-CO: Called Dr Ma. Macdonald regarding consult order of Dr Samson. Left message.
[2019-11-14] MEDS: FERROUS SULFATE (325 MG) 325 MG/TAB TABLET PO SCH ×2 (14:54→17:41)
[2019-11-14 15:11] LABS: IRON, SERUM 82 ug/dl (50-175); TOTAL IRON BINDING CAPACITY 287 ug/dl (250-450)
--- NOTE | 2019-11-14 15:14 | NUR ---
RN NOTE- DR FIELD CAME TO SEE PT AT THIS RN REQUEST. PT HAD AN ORDER FOR IV IRON FERRLECIT 125 MG IV ONCE DAILY X 5 DAYS. THERE WASN'T ANY IRON LEVELS (IRON STUDIES) IN THE LABS. DR FIELD ORDERED LABS REVIEWED CHART AND ORDERED IRON PO FOR PT. MID LINE DC'D BY PICC LINE RN THROUGH HOUSE SUP. TOLERATED WELL. MONITORING IV SITE.
--- NOTE | 2019-11-14 15:45 | NUR ---
RN NOTE- MID LINE SITE CHECKED. NO DRAINAGE/ NO BLEEDING / NO PROBLEMS. DRESSING INTACT
[2019-11-14 16:00] VITALS: BP 131/79
--- NOTE | 2019-11-14 17:26 | NUR ---
RN NOTE- PT W C/O CHEST PAIN. NITRO TAT GIVEN SL. APICAL HR -72 B/P- 125/70. CONTINUE TO MONITOR PT AND FOLLOW UP PRN
--- NOTE | 2019-11-14 17:45 | NUR ---
RN NOTE- PT STATES DECREASED CHEST PAIN. "I FEEL BETTER" . WILL CONTINUE TO MONITOR
--- NOTE | 2019-11-14 18:32 | NUR ---
RN NOTE- RECHECK OF PT CHEST PAIN. PT WITH STATED DECREASE IN CHEST PAIN. "ITS NOT COMPLETELY GONE, BUT MUCH BETTER." cONTINUE TO MONITOR AND TREAT PER MD ORDERS
[2019-11-14 19:38] VITALS: BP 121/64
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
[2019-11-14] MEDS: ACETAMINOPHEN 325 MG TABLET PO PRN (23:04)
[2019-11-14] MEDS: TEMAZEPAM 7.5 MG CAPSULE PO PRN (23:39)
[2019-11-15] MEDS: clonazePAM 0.5 MG TABLET PO PRN ×3 (05:05→21:26)
[2019-11-15 08:00] VITALS: BP 141/71
[2019-11-15] MEDS: FAMOTIDINE (20 MG) 20 MG TABLET PO SCH ×2 (08:09→16:59)
[2019-11-15] MEDS: ACIDOPHILUS/BULGARICUS 1 EACH TAB.CHEW PO SCH (08:09)
[2019-11-15] MEDS: THIAMINE HCL 100 MG TABLET PO SCH (08:09)
[2019-11-15] MEDS: FERROUS SULFATE (325 MG) 325 MG/TAB TABLET PO SCH ×2 (08:09→16:59)
[2019-11-15] MEDS: SPIRONOLACTONE 25 MG TABLET PO SCH (08:09)
[2019-11-15] MEDS: LEVOTHYROXINE SODIUM 50 MCG TABLET PO SCH (08:09)
[2019-11-15] MEDS: POLYETHYLENE GLYCOL 3350 17 GM POWD.PACK PO SCH (08:10)
[2019-11-15] MEDS: ATORVASTATIN 40 MG TABLET PO SCH (08:10)
[2019-11-15] MEDS: AMIODARONE HCL 200 MG TABLET PO SCH (08:11)
[2019-11-15] MEDS: CARVEDILOL 6.25 MG TABLET PO SCH ×2 (08:12→21:27)
[2019-11-15] MEDS: LOSARTAN POTASSIUM 50 MG TABLET PO SCH ×2 (08:12→16:59)
[2019-11-15] MEDS: APIXABAN 5 MG TABLET PO SCH ×2 (08:19→17:04)
[2019-11-15] MEDS ORDERED: SERTRALINE HCL 50 MG TABLET PO SCH (09:00)
--- NOTE | 2019-11-15 10:10 | NUR ---
PT C/O CHEST PAIN. ELIZABETH ORDERED EKG AND TROPONIN LEVEL. ELIZABETH BURN CENTER NURSE MADE AWARE OF EKG RESULTS. AWAITING TROPONIN LEVEL
[2019-11-15] MEDS: ARIPIPRAZOLE 5 MG TABLET PO SCH (11:06)
[2019-11-15] MEDS: ACETAMINOPHEN 325 MG TABLET PO PRN (11:43)
--- NOTE | 2019-11-15 15:26 | NUR ---
Group Note: SW encouraged the pt to attend group therapy on 11/15/19 at 2pm regarding suicidal ideation and urges. Pt refused to attend the group and appeared to be in an irritated mood. Pt stated that he wanted to remain in his bed because he was feeling upset at the time. Pt refused to speak to the SW any further.
[2019-11-15 16:00] VITALS: BP 108/68
[2019-11-15 20:00] VITALS: BP 126/71
[2019-11-15] MEDS: TEMAZEPAM 7.5 MG CAPSULE PO PRN (22:21)
[2019-11-16] MEDS: NITROGLYCERIN 0.4 MG/TAB BOTTLE SL PRN ×2 (02:17→15:58)
[2019-11-16] MEDS: ACETAMINOPHEN 325 MG TABLET PO PRN (02:22)
--- NOTE | 2019-11-16 02:53 | NUR ---
AT 021 PT COMPLAINED OF CHEST PAIN AND GENERAL BODY PAIN. NITROGLYCERIN 0.4MG 1 TAB GIVEN SUBLINGUAL PER ORDER. TYLENOL 325MG 2 TABS 650 GIVEN PO FOR GENERAL PAIN. REASSESSED PT CHEST PAIN AT 222, PT REPORTS CHEST PAIN HAS REDUCED AND THAT HE FEELS BETTER. PT WAS VISIBLY UPSET STATING, " I HAVE NO MONEY AND NO WHERE TO GO AND NO BODY CARES, I [place] BUT NOW I CAN'T EVEN GET MYSELF TREATED OF CLOGGED ARTERY BECAUSE I DO NOT HAVE INSURANCE. WHEN THEY DRAFTED ME TO [place]E [place] THEY NEVER ASKED OF INSURANCE". PT REPORTS HE HAS NO FAMILY, HIS EX IS IN [facility], AND HIS ADOPTED DAUGHTER HAS REFUSED TO SEE HIM. PT WAS VERY UPSET BUT LATER CALM DOWN AND WENT TO BED. WILL CONTINUE TO MONITOR FOR PAIN, MOOD AND BEHAVIOR.
[2019-11-16] MEDS: LEVOTHYROXINE SODIUM 50 MCG TABLET PO SCH (06:33)
--- NOTE | 2019-11-16 06:56 | NUR ---
RN NOTES: AT 0650 PT REPORTED PRIOR TO HIS ADMISSION HE'S BEEN ON LUPRON SHOTS AND RADIATION FOR HIS PROSTATE CANCER, AND WOULD LIKE TO BE PUT BACK ON THEM.
[2019-11-16] MEDS ORDERED: LEUP3.753 IM (07:03)
[2019-11-16 08:00] VITALS: BP 121/74
[2019-11-16] MEDS: FAMOTIDINE (20 MG) 20 MG TABLET PO SCH ×2 (08:27→17:01)
[2019-11-16] MEDS: ACIDOPHILUS/BULGARICUS 1 EACH TAB.CHEW PO SCH (08:29)
[2019-11-16] MEDS: THIAMINE HCL 100 MG TABLET PO SCH (08:29)
[2019-11-16] MEDS: ATORVASTATIN 40 MG TABLET PO SCH (08:29)
[2019-11-16] MEDS: SPIRONOLACTONE 25 MG TABLET PO SCH (08:29)
[2019-11-16] MEDS: SERTRALINE HCL 50 MG TABLET PO SCH (08:30)
[2019-11-16] MEDS: clonazePAM 0.5 MG TABLET PO PRN (08:31)
[2019-11-16] MEDS: ARIPIPRAZOLE 5 MG TABLET PO SCH (08:32)
[2019-11-16] MEDS: FERROUS SULFATE (325 MG) 325 MG/TAB TABLET PO SCH ×2 (08:32→17:02)
[2019-11-16] MEDS: CARVEDILOL 6.25 MG TABLET PO SCH ×2 (08:33→21:48)
[2019-11-16] MEDS: LOSARTAN POTASSIUM 50 MG TABLET PO SCH ×2 (08:34→17:01)
[2019-11-16] MEDS: POLYETHYLENE GLYCOL 3350 17 GM POWD.PACK PO SCH (08:35)
[2019-11-16] MEDS: APIXABAN 5 MG TABLET PO SCH ×2 (08:36→17:01)
[2019-11-16] MEDS: AMIODARONE HCL 200 MG TABLET PO SCH (08:38)
--- NOTE | 2019-11-16 08:58 | NUR ---
SNF Referral: BARRY faxed a referral to [facility] with attn to Rochelle to the fax number: [phone].
--- NOTE | 2019-11-16 15:37 | NUR ---
GROUP NOTE: SW encouraged pt to attend group on this present day discussing "discharge planning." S: "I'm dying and I don't care where I go. This place does not have a plan for me." O: Pt with irritable affect and angry mood. Pt maintained eye contact and was not allowing for redirection. A: Pt has not gained insight into his mental illness. Pt blaming others for his misfortune and questioning why no one has helped him. P: SW will continue to validate pts experience of distress as understandable given his situation.
--- NOTE | 2019-11-16 15:47 | NUR ---
Individual Intervention: SW met with the pt at bedside and informed him that the pt may be accepted to [facility] but they are considering the pts placement because they do not know which SNF the pt was previously at. SW informed him that she would try to place him.
[2019-11-16 16:00] VITALS: BP 125/73
--- NOTE | 2019-11-16 16:01 | NUR ---
Pt. is complaining of chest pain. BP 125/73, DC 64. Stephanie Laughlin (AIR BAG STRIPPER) made aware and ordered to give the prn Nitrostat and stat EKG.
--- NOTE | 2019-11-16 16:24 | NUR ---
Stephanie Laughlin made aware of the EKG result and no new order and said ok to give the 5:00 pm meds of Cozaar, Eliquis, Ferrous and Pepcid.
[2019-11-16 17:00] VITALS: BP 121/63
--- NOTE | 2019-11-16 17:05 | NUR ---
Pt.said chest is getting better and no sign of distress and compliant on due meds.
[2019-11-16 20:00] VITALS: BP 140/77
[2019-11-16] MEDS: VITAMINS A AND D 56.7 GM TUBE TP PRN (20:02)
[2019-11-16] MEDS: TEMAZEPAM 7.5 MG CAPSULE PO PRN (21:49)
[2019-11-17] MEDS: clonazePAM 0.5 MG TABLET PO PRN ×2 (02:27→10:12)
[2019-11-17] MEDS: MAG HYDROX/AL HYDROX/SIMETH 30 ML UDC PO PRN (03:41)
[2019-11-17] MEDS: LEVOTHYROXINE SODIUM 50 MCG TABLET PO SCH (06:48)
[2019-11-17 08:00] VITALS: BP 130/66
[2019-11-17] MEDS: SERTRALINE HCL 50 MG TABLET PO SCH (08:09)
[2019-11-17] MEDS: ARIPIPRAZOLE 5 MG TABLET PO SCH (08:10)
[2019-11-17] MEDS: THIAMINE HCL 100 MG TABLET PO SCH (08:11)
[2019-11-17] MEDS: ATORVASTATIN 40 MG TABLET PO SCH (08:11)
[2019-11-17] MEDS: FERROUS SULFATE (325 MG) 325 MG/TAB TABLET PO SCH ×2 (08:11→16:09)
[2019-11-17] MEDS: FAMOTIDINE (20 MG) 20 MG TABLET PO SCH ×2 (08:11→16:09)
[2019-11-17] MEDS: AMIODARONE HCL 200 MG TABLET PO SCH (08:12)
[2019-11-17] MEDS: ACIDOPHILUS/BULGARICUS 1 EACH TAB.CHEW PO SCH (08:12)
[2019-11-17] MEDS: LOSARTAN POTASSIUM 50 MG TABLET PO SCH ×2 (08:12→16:10)
[2019-11-17] MEDS: SPIRONOLACTONE 25 MG TABLET PO SCH (08:13)
[2019-11-17] MEDS: CARVEDILOL 6.25 MG TABLET PO SCH ×2 (08:14→20:50)
[2019-11-17] MEDS: APIXABAN 5 MG TABLET PO SCH ×2 (08:15→16:10)
[2019-11-17] MEDS: VITAMINS A AND D 56.7 GM TUBE TP PRN (08:20)
[2019-11-17] MEDS: POLYETHYLENE GLYCOL 3350 17 GM POWD.PACK PO SCH (09:31)
--- NOTE | 2019-11-17 10:24 | NUR ---
SNF Contact: Moshe ([phone]) from [facility] contacted the SW and stated that the pt was not accepted to their facility due to the lack of days available.
--- NOTE | 2019-11-17 15:26 | NUR ---
Family Contact: SW called the pts daughter, Ana Maria ([phone]), and left a message on her voicemail stating that the SW would like to discuss the pts initial treatment and discharge plan.
--- NOTE | 2019-11-17 15:27 | NUR ---
Family Contact: SW called the pts ex , Luda ([phone]), and inquired about when the pt was last in the hospital. She stated that it was less than one month ago. SW stated that she was attempting to place him in a SNF but that may not happen.
--- NOTE | 2019-11-17 15:50 | NUR ---
SNF Contact: JT ([phone]) from [facility] contacted the SW and stated that the pt was not accepted to their facility due to the lack of days available.
[2019-11-17 16:00] VITALS: BP 121/74
[2019-11-17 20:00] VITALS: BP 120/75
[2019-11-17 20:15] VITALS: BP 120/75
--- NOTE | 2019-11-17 22:00 | NUR ---
PATIENT IN ROOM THEN WENT TO ACTIVITY ROOM, STEADY GAIT, PLEASANT, COOPERATIVE WITH MEDICATION, PREFERS TO WEAR OWN CLOTHES, DENIES SUICIDAL IDEATION, WILL CONTINUE TO MONITOR Q15 MINUTES WITH HELP OF STAFF TO MAINTAIN SAFETY
[2019-11-17] MEDS: TEMAZEPAM 7.5 MG CAPSULE PO PRN (23:40)
[2019-11-18] MEDS: clonazePAM 0.5 MG TABLET PO PRN ×3 (01:35→20:07)
--- NOTE | 2019-11-18 01:42 | NUR ---
COMPLAINING OF CHEST PAIN, VS 138/71 HR 54 RR 20, PATIENT ANXIOUS BECAUSE OF NOT GETTING SLEEP, GIVEN CLONAZEPAM, WILL CONTINUE TO MONITOR.
--- NOTE | 2019-11-18 02:11 | NUR ---
RECHECKED PATIENT, READING A BOOK, STILL UNABLE TO SLEEP, PER PT "CHEST PAIN IS MUCH BETTER NOW".
--- NOTE | 2019-11-18 06:14 | NUR ---
PATIENT NOTED SLEEPING FOR 4 HOURS, NO DISTRESS, NO COMPLAIN OF CHEST PAIN
[2019-11-18] MEDS: LEVOTHYROXINE SODIUM 50 MCG TABLET PO SCH (06:45)
[2019-11-18 08:00] VITALS: BP 128/66
[2019-11-18] MEDS: ARIPIPRAZOLE 5 MG TABLET PO SCH (09:10)
[2019-11-18] MEDS: POLYETHYLENE GLYCOL 3350 17 GM POWD.PACK PO SCH (09:10)
[2019-11-18] MEDS: ACIDOPHILUS/BULGARICUS 1 EACH TAB.CHEW PO SCH (09:10)
[2019-11-18] MEDS: SPIRONOLACTONE 25 MG TABLET PO SCH (09:10)
[2019-11-18] MEDS: FERROUS SULFATE (325 MG) 325 MG/TAB TABLET PO SCH ×2 (09:10→18:16)
[2019-11-18] MEDS: THIAMINE HCL 100 MG TABLET PO SCH (09:10)
[2019-11-18] MEDS: FAMOTIDINE (20 MG) 20 MG TABLET PO SCH ×2 (09:10→18:16)
[2019-11-18] MEDS: SERTRALINE HCL 50 MG TABLET PO SCH (09:11)
[2019-11-18] MEDS: ATORVASTATIN 40 MG TABLET PO SCH (09:12)
[2019-11-18] MEDS: APIXABAN 5 MG TABLET PO SCH ×2 (09:12→18:15)
[2019-11-18] MEDS: CARVEDILOL 6.25 MG TABLET PO SCH ×2 (09:14→21:17)
[2019-11-18] MEDS: MAG HYDROX/AL HYDROX/SIMETH 30 ML UDC PO PRN (09:37)
--- NOTE | 2019-11-18 09:37 | NUR ---
medicated for heartburn with maalox.
[2019-11-18] MEDS: LOSARTAN POTASSIUM 50 MG TABLET PO SCH ×2 (13:00→18:16)
[2019-11-18] MEDS: AMIODARONE HCL 200 MG TABLET PO SCH (13:00)
[2019-11-18 16:07] VITALS: BP 106/65
--- NOTE | 2019-11-18 18:00 | NUR ---
verbalized being upset about small portions on meal trays.dietary called and tech up to talk with pt. seems happier now.
[2019-11-18 18:09] LABS: BASOPHILS % (AUTO) 0.9 % (0.0-2.0); HEMATOCRIT 35 % (39-51); HEMOGLOBIN 11.5 g/dL (13.5-17.5); LYMPHOCYTES # (AUTO) 0.5 /CMM (0.8-4.8); LYMPHOCYTES % (AUTO) 10.4 % (20.0-44.0); MEAN CORPUSCULAR HGB CONC 33 g/dl (31.0-36.0); MEAN CORPUSCULAR VOLUME 83 fL (80-96); MONOCYTES # (AUTO) 0.7 /CMM (0.1-1.30); MONOCYTES % (AUTO) 12.6 % (2.0-12.0); NEUTROPHILS # (AUTO) 3.7 /CMM (1.8-8.9); NEUTROPHILS % (AUTO) 71.1 % (43.0-81.0); PLATELET COUNT (AUTO) 154 /CMM (150-450); RED BLOOD CELL COUNT(AUTO) 4.27 MIL/uL (4.5-6.0); WHITE BLOOD COUNT (AUTO) 5.2 K/uL (4.3-11.0)
[2019-11-18 18:38] LABS: ALBUMIN 3.8 g/dL (3.4-5.0); BILIRUBIN,TOTAL 0.4 mg/dL (0.2-1.0); CALCIUM, SERUM 9.1 mg/dL (8.5-10.1); CREATININE 1.2 mg/dL (0.6-1.3); POTASSIUM 4.3 mmol/L (3.5-5.1); TOTAL PROTEIN, SERUM 7.2 g/dL (6.4-8.2)
--- NOTE | 2019-11-18 19:56 | NUR ---
RN NOTES: PATIENT RESTING IN HIS BED, EASILY AGITED ,DISHELVED ,PARANOID,NEEDY , COMMANDING, DENIES SI/HI/AVH AT THIS TIME,.ENCOURAGED FOR VERBALIZATION OF FEELINGS, SAFETY PRECAUTIONS IMPLEMENTED. INTERACT WITH IN ENGAGED, WILL CONTINUE TO MONITOR Q15MIN ROUNDS FOR SAFETY AND BEHAVIOR.
[2019-11-18 20:05] VITALS: BP_SYST 132; BP_SYST 137; BP_DIAS 70; BP_DIAS 76
--- NOTE | 2019-11-18 20:08 | NUR ---
RN NOTES: PT. C/O FEELING ANXIOUS KLONOPIN 0.5 MG PO PRN GIVEN PER PT. REQUEST WILL CONTINUE TO MONITOR.
[2019-11-18] MEDS: TEMAZEPAM 7.5 MG CAPSULE PO PRN (22:51)
--- NOTE | 2019-11-18 22:51 | NUR ---
RN NOTES: PT. C/O INSOMNIA RESTORIL 7.5 MG PO PRN GIVEN, PER PT. REQUEST WILL CONTINUE TO MONITOR.
[2019-11-19] MEDS: clonazePAM 0.5 MG TABLET PO PRN (03:43)
--- NOTE | 2019-11-19 03:45 | NUR ---
GPS RN NOTE, PATIENT HAS A COMPLAINT OF FEELING ANXIOUS DUE TO THINKING HE HAS CANCER AND IS REQUESTING KLONOPIN AT THIS TIME. PATIENT VITAL SIGNS ARE STABLE. GAVE KLONOPIN 0.5MG PO Q4HR PRN ORDERED. WILL REASSESS FOR ANXIETY AND I WILL CONTINUE TO MONITOR THIS PATIENT.
--- NOTE | 2019-11-19 06:24 | NUR ---
GPS RN CLOSING NOTE: PATIENT RESTING IN BED ASLEEP, AROUSES EASILY. NO ACUTE DISTRESS NOTED. DENIES PAIN OR DISCOMFORT.UNCOOPERTIVE, NO AGITATION NOTED AT THIS TIME/ BUT EASILY AGITAED. DENIES SI/HI/AVH AT THIS TIME. SAFETY PRECAUTIONS IMPLEMENTED.ENCOURAGED PT. TO VERBALIZED ANY FEELING, WILL CONTINUE TO MONITOR FOR PT'S SAFETY AND BEHAVIOR.
[2019-11-19] MEDS: LEVOTHYROXINE SODIUM 50 MCG TABLET PO SCH (07:52)
[2019-11-19 08:00] VITALS: BP 149/57
[2019-11-19] MEDS: ARIPIPRAZOLE 5 MG TABLET PO SCH (08:30)
[2019-11-19] MEDS: THIAMINE HCL 100 MG TABLET PO SCH (08:30)
[2019-11-19] MEDS: FAMOTIDINE (20 MG) 20 MG TABLET PO SCH ×2 (08:31→16:58)
[2019-11-19] MEDS: SPIRONOLACTONE 25 MG TABLET PO SCH (08:31)
[2019-11-19] MEDS: ACIDOPHILUS/BULGARICUS 1 EACH TAB.CHEW PO SCH (08:31)
[2019-11-19] MEDS: AMIODARONE HCL 200 MG TABLET PO SCH (08:31)
[2019-11-19] MEDS: SERTRALINE HCL 50 MG TABLET PO SCH (08:31)
[2019-11-19] MEDS: FERROUS SULFATE (325 MG) 325 MG/TAB TABLET PO SCH ×2 (08:31→16:58)
[2019-11-19] MEDS: ATORVASTATIN 40 MG TABLET PO SCH (08:31)
[2019-11-19] MEDS: CARVEDILOL 6.25 MG TABLET PO SCH ×2 (08:32→20:49)
[2019-11-19] MEDS: APIXABAN 5 MG TABLET PO SCH ×2 (08:38→17:00)
[2019-11-19] MEDS: LOSARTAN POTASSIUM 50 MG TABLET PO SCH ×2 (08:38→17:02)
[2019-11-19] MEDS: POLYETHYLENE GLYCOL 3350 17 GM POWD.PACK PO SCH (08:39)
[2019-11-19] MEDS: ACETAMINOPHEN 325 MG TABLET PO PRN (14:13)
--- NOTE | 2019-11-19 14:15 | NUR ---
RN NOTE- C/O HEADACHE. TYLENOL 650 MG GIVEN.
[2019-11-19 16:00] VITALS: BP 120/58
[2019-11-19 20:20] VITALS: BP 107/59
--- NOTE | 2019-11-19 20:51 | NUR ---
Medication Coreg 12.5 mg po held. BP 105/59. HR 46. Pt alert and no s/s of any kind of distress. Will continue to monitor.
[2019-11-19] MEDS: TEMAZEPAM 7.5 MG CAPSULE PO PRN (22:58)
--- NOTE | 2019-11-19 23:02 | NUR ---
Pt c/o insomnia. Least restrictive measures ineffective. BP 108/56 Hr 58. Restoril 7.5 mg given as ordered. Will continue to monitor.
--- NOTE | 2019-11-20 00:02 | NUR ---
Post 1 hr Restoril effective. Pt asleep in bed easy to arouse. Frequent visual check done for safety. Will continue to monitor.
[2019-11-20] MEDS: MAG HYDROX/AL HYDROX/SIMETH 30 ML UDC PO PRN (02:32)
--- NOTE | 2019-11-20 02:34 | NUR ---
Pt c/o of indigestion, stomach feels gassy. Maalox 30 ml po given as ordered. Will continue to monitor.
--- NOTE | 2019-11-20 04:28 | NUR ---
Maalox effective. Pt states, " i feel better, no more gassy stomach". Will continue to monitor.
[2019-11-20] MEDS: LEVOTHYROXINE SODIUM 50 MCG TABLET PO SCH (07:33)
[2019-11-20 08:00] VITALS: BP 128/68
[2019-11-20] MEDS: FERROUS SULFATE (325 MG) 325 MG/TAB TABLET PO SCH (08:07)
[2019-11-20] MEDS: ATORVASTATIN 40 MG TABLET PO SCH (08:07)
[2019-11-20] MEDS: FAMOTIDINE (20 MG) 20 MG TABLET PO SCH (08:07)
[2019-11-20] MEDS: SERTRALINE HCL 50 MG TABLET PO SCH (08:07)
[2019-11-20] MEDS: ACIDOPHILUS/BULGARICUS 1 EACH TAB.CHEW PO SCH (08:08)
[2019-11-20] MEDS: ARIPIPRAZOLE 5 MG TABLET PO SCH (08:08)
[2019-11-20] MEDS: THIAMINE HCL 100 MG TABLET PO SCH (08:08)
[2019-11-20] MEDS: AMIODARONE HCL 200 MG TABLET PO SCH (08:08)
[2019-11-20] MEDS: SPIRONOLACTONE 25 MG TABLET PO SCH (08:08)
[2019-11-20 08:09] VITALS: BP 128/68
[2019-11-20] MEDS: CARVEDILOL 6.25 MG TABLET PO SCH (08:09)
[2019-11-20] MEDS: LOSARTAN POTASSIUM 50 MG TABLET PO SCH (08:09)
[2019-11-20] MEDS: APIXABAN 5 MG TABLET PO SCH (08:10)
[2019-11-20] MEDS: POLYETHYLENE GLYCOL 3350 17 GM POWD.PACK PO SCH (08:11)
--- NOTE | 2019-11-20 10:23 | NUR ---
SNF Referral: BARRY faxed a referral to [facility] with attn to Vilma to the fax number: [phone].
--- NOTE | 2019-11-20 14:29 | NUR ---
RN NOTE: REPORT GIVEN TO EUSEBIO DURAN AT [facility] AT [phone]
--- NOTE | 2019-11-20 15:15 | NUR ---
RN NOTE- DC NOTE- PT DC AT THIS TIME TO [facility]. PT IS ALERT ORIENTED TO TIME PLACE AND PURPOSE. VS STABLE. DENIES SI HI AH VH AT THIS TIME. DC INSTRUCTIONS AND AFTERCARE DISCUSSED W PT AND HE VERBALIZED UNDERSTANDING. VALUABLES RETURNED TO PT AND SIGNED FOR. ID [id number] REMOVED AND PT ESCORTED OFF OF UNIT WITH [facility].
--- NOTE | 2019-11-20 15:20 | NUR ---
Family Contact: BARRY called the pts ex , Luda ([phone]), and informed her that the pt is being discharged today to [facility]. She thanked the SW and wrote down the information for the discharge placement.
--- NOTE | 2019-11-20 15:35 | NUR ---
Discharge Note: - Pt was being discharged to [facility] ([facility]) located at [address] [place] [address]; ([phone]). Pt was transported via ambulance at 3pm to Rm 14B. SW called the pts ex , Luda ([phone]), about the pts placement. Upon discharge, the pt appeared to be in a euthymic mood and presented with a distressed affect. Pt denied both suicidal and homicidal ideation as well as auditory and visual hallucinations. Pt appeared to be alert and oriented x4 (time, place, self and situation). Pt was provided with homeless resources that include shelters, food wren, clinics, and substance abuse referrals. Pt signed the homeless checklist. Pt will be under the care of his psychiatrist, Dr. Samson, located at [address], [address], [place] [address]; and dry kiln burner, Dr. Thomas, located at [address] [place] [address]; .
[2019-11-21] MEDS ORDERED: FOLIC ACID 1 MG TABLET PO SCH (09:00)
== END 2019-11-20 15:15 | DRG 885 ==
LOC: ER 22:03 → GPS 11-11 10:48
PROVIDERS: ADMIT Psychiatry & Neurology Psychiatry; ATTEND Nurse Practitioner Acute Care
PROC: 05HB33Z Insertion of Infusion Device into Right Basilic Vein, Percutaneous Approach (ICD-10-PCS; principal; 2019-11-13)
DX: F33.2 Major depressive disorder, recurrent severe without psychotic features (principal); N17.0 Acute kidney failure with tubular necrosis; F23 Brief psychotic disorder; R45.851 Suicidal ideations; F10.20 Alcohol dependence, uncomplicated; E86.0 Dehydration; F43.10 Post-traumatic stress disorder, unspecified; F41.9 Anxiety disorder, unspecified; I10 Essential (primary) hypertension; Z95.0 Presence of cardiac pacemaker; D50.9 Iron deficiency anemia, unspecified; Z59.0 Homelessness; Z85.46 Personal history of malignant neoplasm of prostate; G89.29 Other chronic pain
CPT/HCPCS: 36410; 36415; 71045-TC; 75574; 80048-TC; 80053-TC; 80061-TC; 80076-TC; 80305; 81000-TC; 82962-TC; 83540-TC; 83880; 84484-TC; 85025-TC; 87081-TC; 93307-TC; G0480; J2916; J3490; J7030; J7050; Q9967

== ENCOUNTER 2019-12-03 14:47 | Emergency (ER) | payer MEDICARE, OTHER ==
[~2019-12-03] VITALS: Ht 182.9 cm; Wt 90.7 kg
[~2019-12-03 14:47] MED LIST changes: +ACID1TAB14 PO; +AMIO200T4 PO; -AMLO10TA7 PO; +APIX5TAB PO; +ATOR40TA PO; -CANA1TAB PO; -CLIN150C16 PO; -DOCU100C36 PO; +FAMO20TA8 PO; -GABA-534 PO; +HYDR-4384 PO; -LABE200T5 PO; +LEUP3.753 IM; +LEVO25TA7 PO; -LISI-603 PO; +LOSA50TA39 PO; -METO25TA6 PO; +POLY17PO4 PO; +SPIR25TA6 PO; +TRAZ300T2 PO
--- NOTE | 2019-12-03 14:50 | NUR ---
VICKIE BETTENCOURT 60 from [facility] correction/holding area "was picked up by [employer] earlier today for trespassing-wandered into somebodys house. Suicidal thoughts" pt to bed 12, placed on monitor, vss, nad noted, pending md jarvis
[2019-12-03 15:29] LABS: BASOPHILS % (AUTO) 0.7 % (0.0-2.0); EOSINOPHILS % (AUTO) 8.1 % (0.0-6.0); HEMATOCRIT 32 % (39-51); HEMOGLOBIN 10.5 g/dL (13.5-17.5); LYMPHOCYTES # (AUTO) 0.5 /CMM (0.8-4.8); LYMPHOCYTES % (AUTO) 9.5 % (20.0-44.0); MEAN CORPUSCULAR HGB CONC 33 g/dl (31.0-36.0); MEAN CORPUSCULAR VOLUME 84 fL (80-96); MONOCYTES # (AUTO) 0.5 /CMM (0.1-1.30); MONOCYTES % (AUTO) 9.9 % (2.0-12.0); NEUTROPHILS # (AUTO) 3.5 /CMM (1.8-8.9); NEUTROPHILS % (AUTO) 71.8 % (43.0-81.0); PLATELET COUNT (AUTO) 159 /CMM (150-450); RED BLOOD CELL COUNT(AUTO) 3.84 MIL/uL (4.5-6.0); WHITE BLOOD COUNT (AUTO) 4.9 K/uL (4.3-11.0)
[2019-12-03 15:38] LABS: CALCIUM, SERUM 8.1 mg/dL (8.5-10.1); CREATININE 1.3 mg/dL (0.6-1.3); POTASSIUM 4.1 mmol/L (3.5-5.1)
[2019-12-03 15:43] LABS: ALBUMIN 3.3 g/dL (3.4-5.0); BILIRUBIN,DIRECT 0.1 mg/dL (0.0-0.2); BILIRUBIN,TOTAL 0.3 mg/dL (0.2-1.0); TOTAL PROTEIN, SERUM 6.3 g/dL (6.4-8.2)
[2019-12-03 15:49] LABS: SALICYLATE 0.9 mg/dL (2.8-20.0)
--- NOTE | 2019-12-03 16:03 | NUR ---
PAGED SYSTEMS ADMIN
[2019-12-03 16:19] LABS: APPEARANCE,URINE Clear (CLEAR); BILIRUBIN,URINE Negative (NEGATIVE); BLOOD, URINE Negative Ery/uL (NEGATIVE); COLOR,URINE Yellow (YELLOW); KETONES,URINE Negative (NEGATIVE); LEUKOCYTE ESTERASE ,URINE Negative (NEGATIVE); NITRITE, URINE Negative (NEGATIVE); PH,URINE 5.5 (5.0-8.0); PROTEIN,URINE Negative (NEGATIVE); UGLUCOSE Negative (NEGATIVE); UROBILINOGEN,URINE 0.2 EU/dL (0.2)
--- NOTE | 2019-12-03 18:19 | NUR ---
per saji pt will go voluntary to [facility]
--- NOTE | 2019-12-03 18:37 | NUR ---
accepted at [facility] dr. kat; dr. larson [phone] dilan
--- NOTE | 2019-12-03 19:43 | NUR ---
CALLED [facility] FOR TRANSPORTATION. ETA 30-45MIN
--- NOTE | 2019-12-03 20:16 | NUR ---
report given to josiane mcghee at [facility], [facility]
[2019-12-03 21:00] VITALS: BP 110/79
--- NOTE | 2019-12-03 21:30 | NUR ---
pt transported to [facility] via private ambulance[facility]; report given to staff. all belongings with ambulance. left in stable condition, vss, -sob, nad noted
== END 2019-12-03 22:07 | disposition short-term general hospital (02) ==
LOC: ER 14:50
DX: R45.851 Suicidal ideations (principal); I11.0 Hypertensive heart disease with heart failure; I50.9 Heart failure, unspecified; E11.9 Type 2 diabetes mellitus without complications; Z98.890 Other specified postprocedural states; Z85.46 Personal history of malignant neoplasm of prostate; Z59.0 Homelessness; Z79.899 Other long term (current) drug therapy
CPT/HCPCS: 36415; 80048; 80076; 80305; 80307; 80329; 81001; 85025; 99285; G0480; 81000-TC